=== PATIENT | male | born 1955 | race Caucasian/White ===

== ENCOUNTER 2018-04-03 21:09 | Emergency (ER) | payer BC ==
[2018-04-03] MEDS ORDERED: CLINDAMYCIN 900MG/D5W 900 MG/50 ML BAG IV ONE (23:05)
[2018-04-03] MEDS ORDERED: ACETAMINOPHEN 500 MG TAB ONE (23:05)
[2018-04-03] MEDS ORDERED: ONDANSETRON 4 MG/2 ML VIAL ONE (23:21)
[2018-04-03 23:28] LABS: Absolute Lymphocytes (CBC) 1.5 K/uL (0.7-4.9); Absolute Monocytes 1.1 K/uL (0.1-1.3); Absolute Neutrophil 10.7 K/uL (1.8-8.0); Basophils % 0.4 % (0-1.3); Eosinophils % 3.4 % (0-4.4); Hematocrit 41.2 % (39.6-49.0); Lymphocytes % 10.6 % (15.3-44.8); MCH 27.8 pg (27.0-35.0); MCV 85.6 fL (80-100); MPV 11.3 fL (7.6-11.3); Monocytes % 8.1 % (3.3-12.3); RBC Red Blood Cell Count 4.81 M/uL (4.33-5.43)
--- NOTE | 2018-04-03 23:37 | ER ---
Nurse's Notes [facility] Name: Chacho Flower Age: 63 yrs Sex: Male : 1955 Arrival Date: 04/03/2018 Time: 21:09 Bed 23 Private MD: Diagnosis: Acute Infected Lower Extremity Burn Wounds Presentation: 04/03 21:26 Presenting complaint: Patient states: "I got a burn on my leg (right) that is not lk1 healing up. It has been swelling and making me run a fever today.". Transition of care: patient was not received from another setting of care. Onset of symptoms was March 23, 2018. Risk Assessment: Do you want to hurt yourself or someone else? Patient reports no desire to harm self or others. Initial Sepsis Screen: Does the patient meet any 2 criteria? No. Patient's initial sepsis screen is negative. Does the patient have a suspected source of infection? Yes: Skin breakdown/wound. Care prior to arrival: None. 21:26 Method Of Arrival: Ambulatory lk1 21:26 Acuity: VIVIAN 3 lk1 Historical: - Allergies: 21:29 No Known Allergies; lk1 - PMHx: 21:29 colitis; ruptured colon; lk1 - PSHx: 21:29 j- pouch; bowel resection; lk1 - Immunization history:: Adult Immunizations up to date. - Social history:: Smoking status: Patient/guardian denies using tobacco. - Ebola Screening: : No symptoms or risks identified at this time. - Family history:: not pertinent. - Hospitalizations: : No recent hospitalization is reported. Screenin:26 Abuse screen: Denies threats or abuse. Nutritional screening: No deficits noted. tl3 Tuberculosis screening: No symptoms or risk factors identified. Fall Risk None identified. Assessment: 22:26 General: Appears in no apparent distress. comfortable, well groomed, well developed, tl3 well nourished, Behavior is calm, cooperative, appropriate for age. Pain: Complains of pain in right Achilles. Neuro: Level of Consciousness is awake, alert, obeys commands, Oriented to person, place, time, situation, Appropriate for age. Cardiovascular: Patient's skin is warm and dry. Respiratory: Airway is patent Respiratory effort is even, unlabored, Respiratory pattern is regular, symmetrical. GI: No signs and/or symptoms were reported involving the gastrointestinal system. : No signs and/or symptoms were reported regarding the genitourinary system. EENT: No signs and/or symptoms were reported regarding the EENT system. Derm: Reports itching, pain peeling, since Saturday. pt was cooking fish and grease splattered onto right leg, areas are crusty yellow with yellowish discharge. Went to [facility] and was given Bactroban cream and antihistamine. 23:56 Reassessment: Patient appears in no apparent distress at this time. No changes from tl3 previously documented assessment. Patient and/or family updated on plan of care and expected duration. Pain level reassessed. Patient is alert, oriented x 3, equal unlabored respirations, skin warm/dry/pink. Vital Signs: 21:29 BP 129 / 108; Pulse 82; Resp 20; Temp 99.6(TE); Pulse Ox 99% on R/A; Weight 81.65 kg lk1 (R); Height 5 ft. 9 in. (175.26 cm) (R); Pain 4/10; 23:56 BP 106 / 93; Pulse 76; Resp 18; Pulse Ox 98% on R/A; tl3 21:29 Body Mass Index 26.58 (81.65 kg, 175.26 cm) lk1 ED Course: 21:09 Patient arrived in ED. ds1 21:28 Triage completed. lk1 21:31 Arm band placed on left wrist. lk1 21:47 Tamir Turpin MD is Attending Physician. wa 22:07 Andreina Stallworth, ARCENIO is Primary Nurse. tl3 22:26 Patient has correct armband on for positive identification. Bed in low position. Call tl3 light in reach. Side rails up X 1. Adult w/ patient. 22:26 No provider procedures requiring assistance completed. Patient did not have IV access tl3 during this emergency room visit. 23:00 Inserted saline lock: 20 gauge in right antecubital area, using aseptic technique. tl3 Blood collected. IV discontinued, intact, bleeding controlled, No redness/swelling at site. Pressure dressing applied. 23:35 Paula Mckeon MD is Referral Physician. wa Administered Medications: 23:15 Drug: Tylenol 1000 mg Route: PO; tl3 23:57 Follow up: Response: Pain is decreased tl3 23:23 Drug: Clindamycin 900 mg Route: IVPB; Infused Over: 30 mins; Site: left antecubital; tl3 Delivery: Primary tubing; 23:57 Follow up: IV Status: Completed infusion; IV Intake: 50ml tl3 23:23 Drug: Zofran 4 mg Route: IVP; Site: right antecubital; tl3 23:57 Follow up: Response: No adverse reaction tl3 Intake: 23:57 IV: 50ml; Total: 50ml. tl3 Outcome: 23:00 Discharged to home ambulatory. tl3 23:00 Condition: good 23:00 Discharge instructions given to patient, family, Instructed on discharge instructions, follow up and referral plans. medication usage, Demonstrated understanding of instructions, follow-up care, medications, Prescriptions given X 2. 23:36 Discharge ordered by . ivana 23:59 Patient left the ED. tl3 Signatures: Rebecca Gaviria Leah RN RN lk1 Tamir Turpin MD MD wa Lowrey, Tammy, RN RN tl3
--- NOTE | 2018-04-03 23:37 | EDPHYS ---
Physician Documentation [facility] Name: Chacho Flower Age: 63 yrs Sex: Male : 1955 Arrival Date: 04/03/2018 Time: 21:09 Bed 23 Private MD: ED Physician Tamir Turpin HPI: 04/04 20:12 This 63 yrs old Male presents to ER via Ambulatory with complaints of Leg wa Pain, Fever. 20:12 The patient presents with an abscess, small, a burn, states got splash burn on both wa legs a week ago while grilling. now noted infection w/ drainage of a some of the lesions. . The complaints affect the both legs. Context: The problem was sustained at home, resulted from burn injury, the patient can fully bear weight, the patient is able to ambulate, without difficulty, Problem is a result from a previous injury: No. Onset: The symptoms/episode began/occurred 1 week(s) ago. Modifying factors: The symptoms are alleviated by nothing. the symptoms are aggravated by nothing. Associated signs and symptoms: Pertinent positives: pain. drainage. Treatment prior to arrival includes: topical mupurocin. Severity of symptoms: At their worst the symptoms were moderate, in the emergency department the symptoms are unchanged. The patient has not experienced similar symptoms in the past. The patient has not recently seen a physician. Historical: - Allergies: 04/03 21: No Known Allergies; lk1 - PMHx: 21:29 colitis; ruptured colon; lk1 - PSHx: 21:29 j- pouch; bowel resection; lk1 - Immunization history:: Adult Immunizations up to date. - Social history:: Smoking status: Patient/guardian denies using tobacco. - Ebola Screening: : No symptoms or risks identified at this time. - Family history:: not pertinent. - Hospitalizations: : No recent hospitalization is reported. ROS: 04/04 20:14 Constitutional: Negative for fever, chills, and weight loss, Eyes: Negative for injury, wa pain, redness, and discharge, ENT: Negative for injury, pain, and discharge, Neck: Negative for injury, pain, and swelling, Cardiovascular: Negative for chest pain, palpitations, and edema, Respiratory: Negative for shortness of breath, cough, wheezing, and pleuritic chest pain, Abdomen/GI: Negative for abdominal pain, nausea, vomiting, diarrhea, and constipation, Back: Negative for injury and pain, : Negative for injury, bleeding, discharge, and swelling, Neuro: Negative for headache, weakness, numbness, tingling, and seizure, Psych: Negative for depression, anxiety, suicide ideation, homicidal ideation, and hallucinations. MS/extremity: Positive for wounds on legs. Skin: Positive for draining wounds on legs. All other systems are negative. Exam: 20:15 Constitutional: This is a well developed, well nourished patient who is awake, alert, wa and in no acute distress. Head/Face: Normocephalic, atraumatic. Eyes: Pupils equal round and reactive to light, extra-ocular motions intact. Lids and lashes normal. Conjunctiva and sclera are non-icteric and not injected. Cornea within normal limits. Periorbital areas with no swelling, redness, or edema. ENT: Nares patent. No nasal discharge, no septal abnormalities noted. Tympanic membranes are normal and external auditory canals are clear. Oropharynx with no redness, swelling, or masses, exudates, or evidence of obstruction, uvula midline. Mucous membranes moist. Neck: Trachea midline, no thyromegaly or masses palpated, and no cervical lymphadenopathy. Supple, full range of motion without nuchal rigidity, or vertebral point tenderness. No Meningismus. Chest/axilla: Normal chest wall appearance and motion. Nontender with no deformity. No lesions are appreciated. Cardiovascular: Regular rate and rhythm with a normal S1 and S2. No gallops, murmurs, or rubs. Normal PMI, no JVD. No pulse deficits. Respiratory: Lungs have equal breath sounds bilaterally, clear to auscultation and percussion. No rales, rhonchi or wheezes noted. No increased work of breathing, no retractions or nasal flaring. Abdomen/GI: Soft, non-tender, with normal bowel sounds. No distension or tympany. No guarding or rebound. No evidence of tenderness throughout. Back: No spinal tenderness. No costovertebral tenderness. Full range of motion. Neuro: Awake and alert, GCS 15, oriented to person, place, time, and situation. Cranial nerves II-XII grossly intact. Motor strength 5/5 in all extremities. Sensory grossly intact. Cerebellar exam normal. Normal gait. Psych: Awake, alert, with orientation to person, place and time. Behavior, mood, and affect are within normal limits. 20:15 Musculoskeletal/extremity: noted several dry scaling areas of wounds in different stages of healing. 2 of them noted with associated redness at base, mild drainage. . 20:15 Skin: abscess, of the R medial aspec of the ankle, cellulitis, that is minimal. Vital Signs: 04/03 21:29 BP 129 / 108; Pulse 82; Resp 20; Temp 99.6(TE); Pulse Ox 99% on R/A; Weight 81.65 kg lk1 (R); Height 5 ft. 9 in. (175.26 cm) (R); Pain 4/10; 23:56 BP 106 / 93; Pulse 76; Resp 18; Pulse Ox 98% on R/A; tl3 21:29 Body Mass Index 26.58 (81.65 kg, 175.26 cm) lk1 Procedures: 04/04 20:17 I \T\ D: Incision and drainage was performed for an abscess of the right medial ankle wa Prepped with Betadine, Incised with edge of 18 gauge. . Drained small amount purulent fluid. Dressing: bacitracin the patient tolerated the procedure well. MDM: 04/03 21:47 Patient medically screened. ak 04/04 20:18 Differential diagnosis: infected wound. will place IV and give abx. will d/c with abx. ak Data reviewed: vital signs, nurses notes. 20:18 Test interpretation: by ED physician or midlevel provider: labs were wnl. ak 04/03 22:49 Order name: Basic Metabolic Panel ak 04/03 22:49 Order name: CBC with Diff ak 04/03 22:49 Order name: Hepatic Function ak 04/03 22:49 Order name: IV Saline Lock; Complete Time: 23:23 ak 04/03 22:49 Order name: Labs collected and sent; Complete Time: 23:23 ak Administered Medications: 04/03 23:15 Drug: Tylenol 1000 mg Route: PO; tl3 23:57 Follow up: Response: Pain is decreased tl3 23:23 Drug: Clindamycin 900 mg Route: IVPB; Infused Over: 30 mins; Site: left antecubital; tl3 Delivery: Primary tubing; 23:57 Follow up: IV Status: Completed infusion; IV Intake: 50ml tl3 23:23 Drug: Zofran 4 mg Route: IVP; Site: right antecubital; tl3 23:57 Follow up: Response: No adverse reaction tl3 Disposition: 04/03/18 23:36 Discharged to Home. Impression: Acute Infected Lower Extremity Burn Wounds. - Condition is Stable. - Discharge Instructions: Cellulitis, [id number], Wound Care, [id number]. - Prescriptions for Keflex 500 mg Oral Capsule - take 1 capsule by ORAL route every 8 hours for 7 days; 21 capsule. Bactrim DS 800- 160 mg Oral Tablet - take 1 tablet by ORAL route every 12 hours for 7 days; 14 tablet. - Work release form, Medication Reconciliation Form, Thank You Letter, Antibiotic Education, Prescription Opioid Use form. - Follow up: Paula Mckeon MD; When: 2 - 3 days; Reason: Re-evaluation by your physician. - Problem is new. - Symptoms have improved. - Notes: take antibiotics as prescribed. follow up with Dr. Mckeon for primary care and further wound evaluation. return here for severely worsening concerns immediately Signatures: Dispatcher [employer] EDLindsey Douglass RN RN lk1 Tamir Turpin MD MD wa Lowrey, Tammy, RN RN tl3 Corrections: (The following items were deleted from the chart) 23:59 23:36 04/03/2018 23:36 Discharged to Home. Impression: Acute Infected Lower Extremity tl3 Burn Wounds. Condition is Stable. Forms are Medication Reconciliation Form, Thank You Letter, Antibiotic Education, Prescription Opioid Use. Follow up: Paula Mckeon; When: 2 - 3 days; Reason: Re-evaluation by your physician. Problem is new. Symptoms have improved. wa
[2018-04-03 23:40] LABS: Albumin 3.5 g/dL (3.4-5.0); Bilirubin Direct 0.3 mg/dL (0-0.2); Bilirubin Total 1.2 mg/dL (0.2-1.0); Potassium 3.7 mmol/L (3.5-5.1); Protein, Total 7.2 g/dL (6.4-8.2)
== END 2018-04-03 23:59 | disposition home or self-care (01) ==
LOC: ER 21:09
PROC: 0J9Q0ZZ Drainage of Right Foot Subcutaneous Tissue and Fascia, Open Approach (ICD-10-PCS; principal; 2018-04-03)
DX: T25.091A Burn of unspecified degree of multiple sites of right ankle and foot, initial encounter (principal); L02.415 Cutaneous abscess of right lower limb; L03.115 Cellulitis of right lower limb; T24.092A Burn of unspecified degree of multiple sites of left lower limb, except ankle and foot, initial encounter; T24.091A Burn of unspecified degree of multiple sites of right lower limb, except ankle and foot, initial encounter; X12.XXXA Contact with other hot fluids, initial encounter; Y93.G2 Activity, grilling and smoking food; Y92.019 Unspecified place in single-family (private) house as the place of occurrence of the external cause
CPT/HCPCS: 36415; 80048; 80076; 85025; 96365; 96375; 99284; J2405

== ENCOUNTER 2020-04-24 15:49 | Emergency (ER) | payer BC ==
[2020-04-24] MEDS ORDERED: TETANUS & DIPHTHERIA TOX,ADULT 0.5 ML VIAL ONE (16:35)
[2020-04-24] MEDS ORDERED: ACETAMINOPHEN 325 MG TABLET ONE (16:35)
[2020-04-24] MEDS ORDERED: IBUPROFEN 400 MG TAB ONE (16:35)
--- NOTE | 2020-04-24 17:05 | ER ---
Nurse's Notes [facility] Name: Chacho Flower Age: 65 yrs Sex: Male : 1955 Arrival Date: 04/24/2020 Time: 15:51 Bed 15 Private MD: Diagnosis: Laceration without foreign body of left lesser toe(s) without damage to nail Presentation: 04/24 16:24 Chief complaint: Patient states: Offshore fishing today, noticed bleeding from foot, ph states, " I never felt anything but I'm thinking maybe my foot went into the fish's mouth," Lacerations noted to tops of 3rd and 4th toes, L foot, bleeding controlled. Coronavirus screen: Patient denies shortness of breath or difficulty breathing. Patient denies measured and/or subjective temperature greater than 100.4F prior to today's visit. Patient denies travel on a cruise ship or to a country the [facility] currently lists as an affected area. Patient denies contact with known and/or suspected case of COVID-19. Proceed with normal triage. Ebola Screen: No symptoms or risks identified at this time. Initial Sepsis Screen: Does the patient meet any 2 criteria? No. Patient's initial sepsis screen is negative. Does the patient have a suspected source of infection? No. Patient's initial sepsis screen is negative. Risk Assessment: Do you want to hurt yourself or someone else? Patient reports no desire to harm self or others. Onset of symptoms was April 24, 2020. 16:24 Method Of Arrival: Ambulatory 16:24 Acuity: VIVIAN 4 ph Historical: - Allergies: 16:29 No Known Allergies; ph - PMHx: 16:29 Colitis; ruptured colon; ph - PSHx: 16:29 j- pouch; Bowel resection; ph - Immunization history:: Last tetanus immunization: < 5 years ago. - Social history:: Smoking status: Patient denies any tobacco usage or history of. Screenin:48 Abuse screen: Denies threats or abuse. Nutritional screening: No deficits noted. ll1 Tuberculosis screening: No symptoms or risk factors identified. Fall Risk None identified. Gait- Impaired (20 pts.). Total Yang Fall Scale indicates No Risk (0-24 pts). Assessment: 16:46 General: Appears in no apparent distress. Behavior is calm, cooperative, appropriate ll1 for age. Pain: Denies pain. Derm: Skin is pink, warm \\T\\ dry. Skin temperature is warm Reports laceration to left foot 2nd and 3rd digits. Musculoskeletal: Circulation, motion, and sensation intact. Capillary refill < 3 seconds. Injury Description: laceration. 17:45 Reassessment: Patient appears in no apparent distress at this time. No changes from ll1 previously documented assessment. Patient and/or family updated on plan of care and expected duration. Pain level reassessed. Patient is alert, oriented x 3, equal unlabored respirations, skin warm/dry/pink. 18:44 Reassessment: Patient appears in no apparent distress at this time. No changes from ll1 previously documented assessment. Patient and/or family updated on plan of care and expected duration. Pain level reassessed. Patient is alert, oriented x 3, equal unlabored respirations, skin warm/dry/pink. Vital Signs: 16:24 BP 147 / 86; Pulse 85; Resp 18; Temp 98.8; Pulse Ox 98% ; Weight 83.91 kg; Height 5 ft. ph 9 in. (175.26 cm); Pain 0/10; 17:00 BP 134 / 75; Pulse 81; Resp 17; Pulse Ox 99% ; ll1 18:00 BP 134 / 76; Pulse 78; Resp 17; Pulse Ox 100% ; ll1 18:42 BP 127 / 74; Pulse 74; Resp 17; Pulse Ox 99% ; ll1 16:24 Body Mass Index 27.32 (83.91 kg, 175.26 cm) ph ED Course: 15:51 Patient arrived in ED. bp1 15:57 Phu Houston PA is PHCP. cp 15:57 Phu Hwang MD is Attending Physician. cp 16:09 Esthela Chapman, ARCENIO is Primary Nurse. ll1 16:29 Triage completed. ph 16:30 Arm band placed on Patient placed in an exam room, on a stretcher, on pulse oximetry. ph 16:48 Patient has correct armband on for positive identification. Bed in low position. Call ll1 light in reach. Side rails up X 1. Pulse ox on. NIBP on. 17:10 XRAY Foot LEFT 3 View In Process Unspecified. EDMS 18:37 Dressings: Adaptic X 1; left third toe and left fourth toe Kerlix X 1; left foot jp3 non-adherent dressing x 1 left foot. Dressings: coban tape. Ortho shoe applied to left foot. Wound care: to laceration located on left third toe and left fourth toe was cleaned with Hibiclens, debrided using Betadine scrub, irrigated with normal saline, Patient tolerated well. Wound care: was dressed with Neosporin. 18:45 No provider procedures requiring assistance completed. Patient did not have IV access ll1 during this emergency room visit. Administered Medications: 16:35 Drug: Ibuprofen 800 mg Route: PO; ll1 18:45 Follow up: Response: No adverse reaction; RASS: Alert and Calm (0) ll1 16:35 Drug: Tylenol 650 mg Route: PO; ll1 18:44 Follow up: Response: No adverse reaction; RASS: Alert and Calm (0) 1 16:40 Drug: Tetanus-Diphtheria Toxoid Adult 0.5 ml {Design Technician: [employer]. Exp: 1 06/25/2021. Lot #: [id number]. } Route: IM; Site: right deltoid; 18:45 Follow up: Response: No adverse reaction; RASS: Alert and Calm (0) 1 Outcome: 17:05 Discharge ordered by . bruno 18:45 Patient left the ED. 1 18:45 Discharged to home ambulatory. 1 18:45 Condition: stable 18:45 Discharge instructions given to patient, Instructed on discharge instructions, follow up and referral plans. medication usage, Demonstrated understanding of instructions, follow-up care, medications, Prescriptions given X 1. Signatures: Dispatcher [employer] EDAgnes Medley RN RN Phu Santoro PA PA cp Pisarski, Jacob jp3 Esthela Chapman RN RN 1 [place] bp1
--- NOTE | 2020-04-24 17:05 | EDPHYS ---
Physician Documentation [facility] Name: Chacho Flower Age: 65 yrs Sex: Male : 1955 Arrival Date: 04/24/2020 Time: 15:51 Bed 15 Private MD: ED Physician Phu Hwang HPI: 04/24 16:20 This 65 yrs old Male presents to ER via Ambulatory with complaints of Foot cp Injury. 16:20 The patient presents with an injury, a laceration, irregular. The complaints affect the cp dorsum of left foot. Context: The problem was sustained outdoors, while on fishing boat, the patient can fully bear weight. Onset: The symptoms/episode began/occurred just prior to arrival. Patient concerned while fishing today that after landing fish in boat that foot got caught in fish's mouth causing laceration to toes. Historical: - Allergies: 16:29 No Known Allergies; ph - PMHx: 16:29 Colitis; ruptured colon; ph - PSHx: 16:29 j- pouch; Bowel resection; ph - Immunization history:: Last tetanus immunization: < 5 years ago. - Social history:: Smoking status: Patient denies any tobacco usage or history of. ROS: 16:25 Skin: Positive for laceration(s), of the dorsum of left foot. cp 16:25 MS/extremity: Positive for swelling, tenderness, of the left foot, Negative for cp decreased range of motion, deformity, paresthesias. 16:25 All other systems are negative. Exam: 16:30 Head/Face: Normocephalic, atraumatic. cp 16:30 Constitutional: The patient appears in no acute distress, alert, awake, well developed, well nourished. 16:30 Musculoskeletal/extremity: Extremities: noted in the dorsum of left foot: ecchymosis, swelling, tenderness, Perfusion: the extremity is normally perfused throughout, Sensation intact. 16:30 Skin: injury, laceration(s), of the dorsal aspect left third and fourth toes, that can be described as no foreign body, irregular, with mild bleeding. Vital Signs: 16:24 BP 147 / 86; Pulse 85; Resp 18; Temp 98.8; Pulse Ox 98% ; Weight 83.91 kg; Height 5 ft. ph 9 in. (175.26 cm); Pain 0/10; 17:00 BP 134 / 75; Pulse 81; Resp 17; Pulse Ox 99% ; ll1 18:00 BP 134 / 76; Pulse 78; Resp 17; Pulse Ox 100% ; ll1 18:42 BP 127 / 74; Pulse 74; Resp 17; Pulse Ox 99% ; ll1 16:24 Body Mass Index 27.32 (83.91 kg, 175.26 cm) ph MDM: 16:14 Patient medically screened. cp 16:30 Differential diagnosis: open fracture, closed fracture, abrasion, laceration. cp 17:04 Data reviewed: vital signs, nurses notes, radiologic studies, plain films. cp 17:04 Test interpretation: by ED physician or midlevel provider: xrays of left foot negative cp for fracture. Counseling: I had a detailed discussion with the patient and/or guardian regarding: the historical points, exam findings, and any diagnostic results supporting the discharge/admit diagnosis, radiology results, to return to the emergency department if symptoms worsen or persist or if there are any questions or concerns that arise at home. 04/24 16:20 Order name: XRAY Foot LEFT 3 View; Complete Time: 17:22 cp 04/24 17:22 Interpretation: Reviewed report. 04/24 17:04 Order name: Wound dressing: please clean and dress wound; Complete Time: 18:37 cp 04/24 17:04 Order name: Post-op shoe; Complete Time: 18:37 cp Administered Medications: 16:35 Drug: Ibuprofen 800 mg Route: PO; ll1 18:45 Follow up: Response: No adverse reaction; RASS: Alert and Calm (0) ll1 16:35 Drug: Tylenol 650 mg Route: PO; ll1 18:44 Follow up: Response: No adverse reaction; RASS: Alert and Calm (0) ll1 16:40 Drug: Tetanus-Diphtheria Toxoid Adult 0.5 ml {Cake [employer]ocker: [employer]. Exp: ll1 06/25/2021. Lot #: [id number]. } Route: IM; Site: right deltoid; 18:45 Follow up: Response: No adverse reaction; RASS: Alert and Calm (0) ll1 Disposition: 17:15 Chart complete. 04/25 08:13 Co-signature as Attending Physician, Phu Hwang MD I agree with the assessment and gold plan of care. Disposition: 04/24/20 17:05 Discharged to Home. Impression: Laceration without foreign body of left lesser toe(s) without damage to nail. - Condition is Stable. - Discharge Instructions: Laceration Care, Adult, Nonsutured Laceration Care. - Prescriptions for Doxycycline Hyclate 100 mg Oral Tablet - take 1 tablet by ORAL route every 12 hours; 20 tablet. - Medication Reconciliation Form, Thank You Letter, Antibiotic Education, Prescription Opioid Use form. - Follow up: Private Physician; When: 2 - 3 days; Reason: Worsening of condition. - Problem is new. - Symptoms have improved. Signatures: Dispatcher [employer] EDMS Phu Hwang MD MD cha Hall, Patricia, RN RN ph Phu Houston PA PA cp Esthela Chapman RN RN ll1 Corrections: (The following items were deleted from the chart) 04/24 17:03 16:40 Constitutional: The patient appears in no acute distress, alert, awake, well cp developed, well nourished, cp 17:03 16:40 Head/Face: Normocephalic, atraumatic. cp cp 17:03 16:40 Skin: injury, laceration(s), of the dorsal aspect left third and fourth toes, cp that can be described as no foreign body, irregular, with mild bleeding, cp 17:03 16:40 Musculoskeletal/extremity: Extremities: noted in the dorsum of left foot: cp ecchymosis, swelling, tenderness, Perfusion: the extremity is normally perfused throughout, Sensation intact. cp 18:45 17:05 04/24/2020 17:05 Discharged to Home. Impression: Laceration without foreign body ll1 of left lesser toe(s) without damage to nail. Condition is Stable. Forms are Medication Reconciliation Form, Thank You Letter, Antibiotic Education, Prescription Opioid Use. Follow up: Private Physician; When: 2 - 3 days; Reason: Worsening of condition. Problem is new. Symptoms have improved. cp
--- NOTE | 2020-04-24 17:15 | RAD REPORT ---
EXAM DESCRIPTION: RAD - Foot Left 3 View - 04/24/2020 5:09 pm CLINICAL HISTORY: laceration;Pain COMPARISON: No comparisons FINDINGS: No fracture, dislocation or radiopaque foreign body. Small plantar calcaneal spur.
[2020-04-24 19:09] VITALS: TEMP 98.8
[2020-04-24 19:13] VITALS: BP 127/74; O2SAT 99
== END 2020-04-24 18:45 | disposition home or self-care (01) ==
LOC: ER 15:49
DX: S91.115A Laceration without foreign body of left lesser toe(s) without damage to nail, initial encounter (principal); W45.8XXA Other foreign body or object entering through skin, initial encounter; Y93.89 Activity, other specified; Y92.814 Boat as the place of occurrence of the external cause; Z23 Encounter for immunization
CPT/HCPCS: 90471; 90714; 99284

== ENCOUNTER 2022-11-16 09:36 | Emergency (ER) | payer OTHER ==
--- OUTSIDE RECORDS SUMMARY | 2022-11-16 09:39 | XMS REPORT | Continuity of Care Document ---
:1955 Author Organization [facility] t Address [address] [place] [address] Care Team Providers Name Role Phone Unavailable Unavailable Unavailable Problems This patient has no known problems. Allergies, Adverse Reactions, Alerts This patient has no known allergies or adverse reactions. Medications This patient has no known medications. Procedures This patient has no known procedures. Encounters Start End Encounter Admission Attending Care Care Encounter Source Date/Time Date/Time Type Type Clinicians Facility Department ID 2021-10-31 2021-10-31 Outpatient [facility] 00:00:00 00:00:00 [id number] 2021-10-16 2021-10-16 Outpatient [facility] 00:00:00 00:00:00 [id number] Results This patient has no known results.
[2022-11-16] MEDS ORDERED: ONDANSETRON 4 MG/2 ML VIAL ONE ×2 (10:20→21:23)
[2022-11-16] MEDS ORDERED: NA CHLORIDE 0.9% 1,000 ML ONE ×2 (10:20→17:18)
[2022-11-16] MEDS ORDERED: KETOROLAC 30 MG/ML INJ ONE (10:20)
[2022-11-16 10:57] LABS: Absolute Lymphocytes (CBC) 0.7 K/uL (0.7-4.9); Hematocrit 43.5 % (39.6-49.0); Lymphocytes % 10.2 % (15.3-44.8); MCV 85.9 fL (80-100); MPV 10.4 fL (7.6-11.3); RBC Red Blood Cell Count 5.07 M/uL (4.33-5.43)
[2022-11-16 11:14] LABS: Albumin 3.9 g/dL (3.4-5.0); Bilirubin Total 2.9 mg/dL (0.2-1.0); Protein, Total 7.3 g/dL (6.4-8.2)
--- NOTE | 2022-11-16 12:09 | RAD REPORT ---
EXAM DESCRIPTION: CT - Abdomen Pelvis W Contrast - 11/16/2022 11:46 am CLINICAL HISTORY: Abdominal pain COMPARISON: none. TECHNIQUE: Computed axial tomography of the abdomen pelvis was obtained. 100 cc Isovue-300 was admin istered intravenously. Oral contrast was not requested which limits evaluation of bowel and appendix All CT scans are performed using dose optimization technique as appropriate and may include automated exposure control or mA/KV adjustment according to patient size. FINDINGS: Small hepatic cysts Spleen, pancreas, adrenals and kidneys are unremarkable Colectomy. It is uncertain if there is a piece of residual rectum in place or it is ileum. Most of th e small bowel is mildly dilated and fluid-filled. No free air. No abscess IMPRESSION: Colectomy. The small bowel is mildly dilated to the level of either small piece of residual rectum or transposed ileum. Perhaps there is a stricture at the anastomotic site.
[2022-11-16] MEDS ORDERED: MORPHINE 2 MG/ML SYR ONE (13:36)
[2022-11-16] MEDS ORDERED: METOCLOPRAMIDE 10 MG/2mL INJ ONE (13:36)
[2022-11-16 15:44] LABS: SARS-CoV-2 Antigen Rapid Res Negative (Negative)
[2022-11-16] MEDS ORDERED: MORPHINE 4 MG/ML SYR ONE ×2 (17:18→21:23)
--- NOTE | 2022-11-16 19:12 | RAD REPORT ---
EXAM DESCRIPTION: RAD - Abdomen 1 View (KUB) - 11/16/2022 7:05 pm CLINICAL HISTORY: ng tube placement COMPARISON: Abdomen Pelvis W Contrast dated 11/16/2022 FINDINGS/IMPRESSION: NG tube tip overlies the gastric body. Dilated small bowel noted. Lungs are bernie ar.
--- NOTE | 2022-11-16 19:29 | EDPHYS ---
Physician Documentation [facility] Name: Chacho Flower Age: 67 yrs Sex: Male : 1955 Arrival Date: 11/16/2022 Time: 09:39 Bed 14 Private MD: Tamir Hutchinson H ED Physician Cortez Maher HPI: 11/16 10:11 This 67 yrs old Male presents to ER via Ambulatory with complaints of Abdominal Pain. aj3 10:11 Patient reports abdominal pain started last night associated with nausea and mild aj3 vomiting. He reports the pain is generalized and nonradiating. His last bowel movement was yesterday and normal. Patient reports having history of ulcerative colitis when he was younger with a J-pouch and previous bowel obstructions in the past. No reports of any fever, chills, urinary symptoms, bloody or black stools.. Historical: - Allergies: 09:50 No Known Allergies; iw - Home Meds: 09:50 None [Active]; iw - PMHx: 09:50 Colitis; ruptured colon; iw - PSHx: 09:50 colostomy and reversal; iw - Immunization history:: Client reports receiving the 2nd dose of the Covid vaccine. - Social history:: Smoking status: Patient denies any tobacco usage or history of. ROS: 10:11 Constitutional: Negative for fever, chills, and weight loss, Neck: Negative for injury, aj3 pain, and swelling, Cardiovascular: Negative for chest pain, palpitations, and edema, Respiratory: Negative for shortness of breath, cough, wheezing, and pleuritic chest pain, MS/Extremity: Negative for injury and deformity, Skin: Negative for injury, rash, and discoloration, Neuro: Negative for syncope, headache, weakness, numbness, tingling, and seizure. 10:11 Abdomen/GI: Positive for abdominal pain, nausea and vomiting, Negative for diarrhea, constipation, hematemesis, black/tarry stool, rectal pain, rectal bleeding. Exam: 10:11 Constitutional: This is a well developed, well nourished patient who is awake, alert, aj3 and in no acute distress. Neck: Trachea midline and no cervical lymphadenopathy. Supple, full range of motion without nuchal rigidity. Cardiovascular: Regular rate and rhythm with a normal S1 and S2. No gallops, murmurs, or rubs. Normal PMI, no JVD. No pulse deficits. Respiratory: Lungs have equal breath sounds bilaterally, clear to auscultation and percussion. No rales, rhonchi or wheezes noted. No increased work of breathing, no retractions or nasal flaring. Skin: Warm, dry with normal turgor. Normal color with no rashes, no lesions, and no evidence of cellulitis. MS/ Extremity: Pulses equal, no cyanosis. Neurovascular intact. Full, normal range of motion. Neuro: Awake and alert, GCS 15, oriented to person, place, time, and situation. Cranial nerves II-XII grossly intact. Motor strength 5/5 in all extremities. Sensory grossly intact. Cerebellar exam normal. Normal gait. 10:11 Abdomen/GI: Inspection: abdomen appears normal, Bowel sounds: normal, Palpation: soft, moderate abdominal tenderness, in all quadrants. Vital Signs: 09:48 BP 135 / 72; Pulse 72; Resp 16; Temp 98.6(O); Pulse Ox 96% ; Weight 83.91 kg; Height 5 iw ft. 9 in. (175.26 cm); Pain 10/10; 11:00 BP 130 / 73; Pulse 68; Resp 18; Pulse Ox 95% on R/A; kr3 12:06 BP 134 / 80; Pulse 78; Resp 18; Pulse Ox 98% on R/A; kr3 13:00 BP 130 / 81; Pulse 72; Resp 18; Pulse Ox 100% on R/A; kr3 14:00 BP 135 / 70; Pulse 66; Resp 18; Pulse Ox 100% ; kr3 15:00 BP 136 / 95; Pulse 78; Resp 18; Pulse Ox 96% on R/A; kr3 16:00 BP 129 / 76; Pulse 70; Resp 18; Pulse Ox 95% on R/A; kr3 17:00 BP 127 / 75; Pulse 68; Resp 18; Pulse Ox 94% on R/A; kr3 18:00 BP 130 / 80; Pulse 68; Resp 18; Pulse Ox 96% on R/A; kr3 21:15 BP 126 / 80; Pulse 67; Resp 18; Temp 98.6; Pulse Ox 95% on R/A; Pain 8/10; ke1 09:48 Body Mass Index 27.32 (83.91 kg, 175.26 cm) iw MDM: 10:04 Patient medically screened. aj3 10:11 Differential diagnosis: appendicitis, bowel obstruction, Cholelithiasis, diverticulitis.aj3 13:42 Management of patient was discussed with the following: Safety Risk Lead: Spoke with Dr. ar Munoz regarding patient CT results. Stated that he will come and evaluate patient after he is finished in the OR. Patient updated on plan.. Independent interpretation of the following test(s) in the Emergency Department CT Scan: My interpretation is dilated bowel noted. . 13:49 Data reviewed: vital signs, nurses notes, lab test result(s), radiologic studies, CT aj3 scan. 14:56 Independent interpretation of the following test(s) in the Emergency Department. aj3 14:58 Data reviewed: lab test result(s), T bili elevated. . aj3 15:47 Consideration of Admission/Observation Escalation of care including aj3 admission/observation considered. Will need transfer to facility with colorectal surgery. Management of patient was discussed with the following: Safety Risk Lead: Dr. Munoz came to evaluate patient. After discussion with patient reviewing his CT imaging there is concern that he needs to be transferred to a facility that has colorectal surgery secondary to ileoanal J-pouch with stenosis which is causing his obstruction. Transfer has been initiated to [facility] as they requested Dr. Allen but they are at capacity.. Historians other than the Patient: Spouse/Significant Other: . 15:47 Care significantly affected by the following chronic conditions: Ulcerative colitis. aj3 Counseling: I had a detailed discussion with the patient and/or guardian regarding: the historical points, exam findings, and any diagnostic results supporting the discharge/admit diagnosis, lab results, radiology results, the need to transfer to another facility. 19:15 ED course: I discussed the patient with Colorectal whom wants to accept patient. sulema Waiting on [facility] approval. 11/16 10:11 Order name: CBC with Diff; Complete Time: 11:11 aj3 11/16 10:11 Order name: CMP; Complete Time: 11:57 aj3 11/16 10:11 Order name: Lipase; Complete Time: 11:57 aj3 11/16 10:11 Order name: CT Abd/Pelvis - IV Contrast Only; Complete Time: 12:41 aj3 11/16 15:17 Order name: SARS RAPID; Complete Time: 15:46 eb 11/16 18:30 Order name: Abdomen 1 View (KUB) XRAY; Complete Time: 19:14 m 11/16 10:11 Order name: IV Saline Lock; Complete Time: 10:59 [facility] 11/16 10:11 Order name: Labs collected and sent; Complete Time: 10:59 [facility] 11/16 12:57 Order name: Consult Surgery-Jesús Munoz MD (GENERAL SURGERY); Complete Time: 13:31 [facility] 11/16 13:49 Order name: NPO; Complete Time: 13:51 [facility] 11/16 16:57 Order name: NG Tube; Complete Time: 18:25 jmm Administered Medications: 10:35 Drug: NS 0.9% 1000 ml Route: IV; Rate: 1 bolus; Site: right forearm; kr3 10:40 Drug: TORadol - (ketorolac) 15 mg Route: IVP; Site: right forearm; kr3 10:45 Drug: Zofran (Ondansetron) 4 mg Route: IVP; Site: right forearm; kr3 13:41 Drug: Reglan (metoCLOPramide) 10 mg Route: IVP; Site: right forearm; kr3 13:42 Drug: morphine 2 mg Route: IVP; Infused Over: 4 mins; Site: right forearm; kr3 17:15 Drug: morphine 4 mg Route: IVP; Infused Over: 4 mins; Site: right forearm; kr3 18:25 Drug: NS 0.9% 1000 ml Route: IV; Rate: 100 ml/hr; Site: right forearm; kr3 21:23 Drug: morphine 4 mg Route: IVP; Infused Over: 4 mins; Site: right forearm; ke1 21:29 Follow up: Response: Medication administered at discharge. ke1 21:23 Drug: Zofran (Ondansetron) 4 mg Route: IVP; Site: right forearm; ke1 21:29 Follow up: Response: Medication administered at discharge. 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 jmm Forms: - Medication Reconciliation Form [facility] - SBAR form [facility] Signatures: Dispatcher [employer] EDMS Sai Crawford PA PA jmm Williams, Irene, Matthew Martinez RN, MD MD rn Ebrottie, Kouassi, RN RN ke1 Denise Davis RN RN kr3 Abena Wallace, IT SECURITY ARCHITECT IT SECURITY ARCHITECT aj3 Corrections: (The following items were deleted from the chart) 14:57 13:42 Independent interpretation of the following test(s) in the Emergency Department aj3 CT Scan: My interpretation is No obvious signs of perforation or obstruction on my review. aj3 21:29 19:28 Alejandro leone ke1
--- NOTE | 2022-11-16 19:29 | ER ---
Nurse's Notes 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 He had UC several years ago and had a colostomy. Coronavirus screen: At this time, the client does not indicate any symptoms associated with coronavirus-19. Ebola Screen: Patient negative for fever greater than or equal to 101.5 degrees Fahrenheit, and additional compatible Ebola Virus Disease symptoms Patient denies exposure to infectious person. Patient denies travel to an Ebola-affected area in the 21 days before illness onset. No symptoms or risks identified at this time. Initial Sepsis Screen: Does the patient meet any 2 criteria? No. Patient's initial sepsis screen is negative. Does the patient have a suspected source of infection? No. Patient's initial sepsis screen is negative. Risk Assessment: Do you want to hurt yourself or someone else? Patient reports no desire to harm self or others. Onset of symptoms was November 15, 2022. 09:48 Method Of Arrival: Ambulatory iw 09:48 Acuity: VIVIAN 3 iw Triage Assessment: 19:00 General: Appears in no apparent distress. General: Behavior is appropriate for age. ke1 Pain: Denies pain. GI: Reports. Historical: - Allergies: 09:50 No Known Allergies; iw - Home Meds: 09:50 None [Active]; iw - PMHx: 09:50 Colitis; ruptured colon; iw - PSHx: 09:50 colostomy and reversal; iw - Immunization history:: Client reports receiving the 2nd dose of the Covid vaccine. - Social history:: Smoking status: Patient denies any tobacco usage or history of. Screenin:00 [facility] ED Fall Risk Assessment (Adult) History of falling in the last 3 months, ke1 including since admission No falls in past 3 months (0 pts) Confusion or Disorientation No (0 pts) Intoxicated or Sedated No (0 pts) Impaired Gait No (0 pts) Mobility Assist Device Used No (0 pt) Altered Elimination No (0 pt) Score/Fall Risk Level 0 - 2 = Low Risk. Abuse screen: Denies threats or abuse. Nutritional screening: No deficits noted. Tuberculosis screening: No symptoms or risk factors identified. Assessment: 10:00 Reassessment: see triage note. kr3 11:00 Reassessment: Patient appears in no apparent distress at this time. Patient and/or kr3 family updated on plan of care and expected duration. Pain level reassessed. Patient is alert, oriented x 3, equal unlabored respirations, skin warm/dry/pink. patient states symptoms improved. 12:05 Reassessment: Patient appears in no apparent distress at this time. Patient and/or kr3 family updated on plan of care and expected duration. Pain level reassessed. Patient is alert, oriented x 3, equal unlabored respirations, skin warm/dry/pink. 13:00 Reassessment: Patient appears in no apparent distress at this time. Patient and/or kr3 family updated on plan of care and expected duration. Pain level reassessed. Patient is alert, oriented x 3, equal unlabored respirations, skin warm/dry/pink. 13:15 Reassessment: called to let me know the pain and nausea is coming back and would like kr3 some more medication. 14:00 Reassessment: Patient and/or family updated on plan of care and expected duration. Pain kr3 level reassessed. Patient is alert, oriented x 3, equal unlabored respirations, skin warm/dry/pink. 14:45 Reassessment: Ivette at bedside. kr3 15:00 Reassessment: Patient appears in no apparent distress at this time. Patient and/or kr3 family updated on plan of care and expected duration. Pain level reassessed. Patient is alert, oriented x 3, equal unlabored respirations, skin warm/dry/pink. 16:00 Reassessment: Patient appears in no apparent distress at this time. Patient and/or kr3 family updated on plan of care and expected duration. Pain level reassessed. Patient is alert, oriented x 3, equal unlabored respirations, skin warm/dry/pink. 17:00 Reassessment: Patient appears in no apparent distress at this time. Patient and/or kr3 family updated on plan of care and expected duration. Pain level reassessed. Patient is alert, oriented x 3, equal unlabored respirations, skin warm/dry/pink. 18:00 Reassessment: Patient appears in no apparent distress at this time. Patient and/or kr3 family updated on plan of care and expected duration. Pain level reassessed. Patient is alert, oriented x 3, equal unlabored respirations, skin warm/dry/pink. 19:00 GI: ke1 22:31 Reassessment: Report given to Moon Wall. ke1 Vital Signs: 09:48 BP 135 / 72; Pulse 72; Resp 16; Temp 98.6(O); Pulse Ox 96% ; Weight 83.91 kg; Height 5 iw ft. 9 in. (175.26 cm); Pain 10/10; 11:00 BP 130 / 73; Pulse 68; Resp 18; Pulse Ox 95% on R/A; kr3 12:06 BP 134 / 80; Pulse 78; Resp 18; Pulse Ox 98% on R/A; kr3 13:00 BP 130 / 81; Pulse 72; Resp 18; Pulse Ox 100% on R/A; kr3 14:00 BP 135 / 70; Pulse 66; Resp 18; Pulse Ox 100% ; kr3 15:00 BP 136 / 95; Pulse 78; Resp 18; Pulse Ox 96% on R/A; kr3 16:00 BP 129 / 76; Pulse 70; Resp 18; Pulse Ox 95% on R/A; kr3 17:00 BP 127 / 75; Pulse 68; Resp 18; Pulse Ox 94% on R/A; kr3 18:00 BP 130 / 80; Pulse 68; Resp 18; Pulse Ox 96% on R/A; kr3 21:15 BP 126 / 80; Pulse 67; Resp 18; Temp 98.6; Pulse Ox 95% on R/A; Pain 8/10; ke1 09:48 Body Mass Index 27.32 (83.91 kg, 175.26 cm) iw ED Course: 09:35 Inserted saline lock: 22 gauge in right forearm, using aseptic technique. Blood kr3 collected. 09:39 Patient arrived in ED. mr 09:39 Tamir Hutchinson MD is Private Physician. mr 09:48 Abena Wallace NP is PHCP. aj3 09:48 Cortez Maher MD is Attending Physician. aj3 09:50 Triage completed. iw 09:51 Arm band placed on. iw 10:14 Denise Davis, ARCENIO is Primary Nurse. kr3 11:48 CT Abd/Pelvis - IV Contrast Only In Process Unspecified. EDMS 12:[address] Munoz called and connected with Abena Baldwin for patient consultation. eb 15:16 initiated a transfer with Aziza from the [facility] transfer center at the request of the eb patient/. 15:22 per Aziza from the [facility] transfer kemp they will have to decline the patient in eb transfer due to the facility being at capacity. 15:[address] Allen patient's colorectal surgeon. eb 15:46 initiated a transfer with Carey from the [facility] Transfer center. eb 15:58 PHCP role handed off by Abena Wallace NP [facility] 15:58 Sai Crawford PA is PHCP. jm 16:12 Dr. Allen returned call, informed him of the no bed situation at [facility] he ask if we eb can try [facility]/. 16:17 intiated a transfer with Louise from the [facility] Transfer center. eb 16:20 Accepted for transfer to [facility] ER by Courtney Hickey \T\ 1905 per Jurgen Bean. wm 16:54 connected the partner of Dr. Allen with Sai Hutchison for patient transfer consultation. eb 17:35 NGT: inserted 12 Fr. via right nare. verified return of gastric contents. kr3 19:00 Bed in low position. ke1 19:07 Abdomen 1 View (KUB) XRAY In Process Unspecified. EDMS 19:17 Called [facility] to get an update regarding transfer, spoke with Jurgen, she stated that Pt wm has been accepted, just waiting on bed assignment. 21:28 NGT: to intermittent suction. Returned gastric contents. Returned bile. 30 ml. ke1 21:28 No provider procedures requiring assistance completed. Patient transferred, IV remains ke1 in place. 22:29 NGT:. ke1 Administered Medications: 10:35 Drug: NS 0.9% 1000 ml Route: IV; Rate: 1 bolus; Site: right forearm; kr3 10:40 Drug: TORadol - (ketorolac) 15 mg Route: IVP; Site: right forearm; kr3 10:45 Drug: Zofran (Ondansetron) 4 mg Route: IVP; Site: right forearm; kr3 13:41 Drug: Reglan (metoCLOPramide) 10 mg Route: IVP; Site: right forearm; kr3 13:42 Drug: morphine 2 mg Route: IVP; Infused Over: 4 mins; Site: right forearm; kr3 17:15 Drug: morphine 4 mg Route: IVP; Infused Over: 4 mins; Site: right forearm; kr3 18:25 Drug: NS 0.9% 1000 ml Route: IV; Rate: 100 ml/hr; Site: right forearm; kr3 21:23 Drug: morphine 4 mg Route: IVP; Infused Over: 4 mins; Site: right forearm; ke1 21:29 Follow up: Response: Medication administered at discharge. ke1 21:23 Drug: Zofran (Ondansetron) 4 mg Route: IVP; Site: right forearm; ke1 21:29 Follow up: Response: Medication administered at discharge. ke1 Medication: 21:29 VIS not applicable for this client. ke1 Outcome: 19:28 ER care complete, transfer ordered by MD. [facility] 21:28 Transferred by ground EMS ke1 21:28 Condition: stable 21:28 Instructed on the need for transfer. 21:29 Patient left the ED. ke1 Signatures: Dispatcher [employer] EDMS Sai Crawford PA PA jmm KumarLina acosta Irene, RN RN iw Botello, Elizabeth eb Marsh, Wendy wm Ebrottie, Kouassi, RN RN ke1 Denise Davis RN RN kr3 Abena Wallace, [employer] IND[employer] RENDERER aj3 Corrections: (The following items were deleted from the chart) 12:04 12:04 Reassessment: see triage note kr3 kr3 14:00 13:58 Reassessment: called to let me know the pain and nausea is coming back and would kr3 like some more medication kr3 18:41 18:40 NGT: inserted 12 Fr. via right nare. verified return of gastric contents, kr3 kr3 22:30 21:28 NGT: to intermittent suction. Returned gastric contents. Returned bile. ke1 ke1
[2022-11-16 21:53] VITALS: TEMP 98.6
[2022-11-16 22:05] VITALS: BP 126/80; O2SAT 95
== END 2022-11-16 21:29 ==
LOC: ER 09:36
DX: K56.609 Unspecified intestinal obstruction, unspecified as to partial versus complete obstruction (principal); Z20.822 Contact with and (suspected) exposure to COVID-19
CPT/HCPCS: 85025; 36415; 83690; 80053; 74177; 74018; 96375; 96374; 99285; 87811; Q9967; J2765; J2270; J7030 ×2; J2405 ×2

== ENCOUNTER 2024-09-13 07:25 | Emergency (ER) | payer OTHER ==
--- OUTSIDE RECORDS SUMMARY | 2024-09-13 07:28 | XMS REPORT | Continuity of Care Document ---
Author Name Unknown Address [address] [facility] [address] [place] [address] [facility] Address [address] [place] [address] Care Team Providers Care Technician Helper Instrument Name Role Phone Jorge A Gonzales Attending Clinician Unavailable Jorge A Gonzales Admitting Clinician Unavailable Payers Payer Name Policy Type Policy Number Effective Date Expirati on Date Source Allergies, Adverse Reactions, Alerts Allergy Name Allergy Type Status Severity Reaction(s) Onset Date Inactive Date Treating Clinician Comments Source No Known Allergie s DA Active U 11-17 00:00: 00 [facility] No Known Allergie s DA Active U 11-16 00:00: 00 [facility] [place] Procedures Procedure Date / Time Performed Performing Clinicia n Source [id number] 2022-11-20 00:00:00 [facility] [id number] 2022-11-20 00:00:00 [facility] [id number] 2022-11-20 00:00:00 [facility] Encounters Start Date/Time End Date/Time Encounter Type Admission Type Attending Clinicians Care Facility Care Department Encounter ID Source 2022-11-16 22:51:00 2022-11-20 15:24:00 Inpatient EM Jorge A Gonzales [facility]01 [id number] [facility] 2021-10-31 00:00:00 2021-10-31 00:00:00 Outpatient [facility] [id number] [facility] 2021-10-16 00:00:00 2021-10-16 00:00:00 Outpatient [facility] [id number] [facility] Results Test Description Test Time Test Comments Results Result Co mments Source BASIC METABOLIC [id number] 04:54:00* Test Item Value Reference Range Interpretation Comme nts SODIUM (test code = NA) 141 mmol/L 136-145 N POTASSIUM (test code = K) 3.5 mmol/L 3.5-5.1 N CHLORIDE (test code = CL) 110 CARBON DIOXIDE (test code = CO2) 24 mmol/L 20-31 N GLUCOSE (test code = GLU) 113 ng/dL 74-106 H BLOOD UREA NITROGEN (test code = BUN) < 5 mg/dL 9-23 L GLOMERULAR FILTRATION RATE (test code = GFR) >=60 max estimate mL/min >60 The Glomerular Filtration Rate is a calculated parameterbased on serum Creatinine, patient age and sex. GFR valuesless than 60 mL/min/1.73 square meters are indicative ofChronic Kidney Disease. Values less than 15 mL/min/1.73square meters indicate Kidney failure. The calculation forGFR is based on the CKD-EPI (2020) calculation. This formulais race indifferent and is the recommended formula for GFRby the National Kidney Foundation for Adults.The GFR will not calculate if the sex is unknown or if thepatient's age is <18 years. CREATININE (test code = CREAT) 0.90 mg/dL 0.70-1.30 N CALCIUM (test code = CA) 7.9 mg/dL 8.7-10.4 L CBC W/AUTO [id number] 04:34:00* Test Item Value Reference Range Interpretation Comme nts WHITE BLOOD CELL (test code = WBC) 6.7 x10 3/uL 4.8-10.8 N RED BLOOD CELL (test code = RBC) 4.64 x10 6/uL 4.70-6.10 L HEMOGLOBIN (test code = HGB) 13.0 g/dL 14.0-18.0 L HEMATOCRIT (test code = HCT) 40.0 % 42.0-52.0 L MEAN CELL VOLUME (test code = MCV) 86.2 fL 80.0-94.0 N MEAN CELL HGB (test code = MCH) 28.0 pg 27-31 N MEAN CELL HGB CONCENTRATION (test code = MCHC) 32.5 G/DL 33-36.5 L RED CELL DISTRIBUTION WIDTH (test code = RDW) 13.4 % 12.9-16.9 N PLATELET COUNT (test code = PLT) 153 x10 3/uL 150-440 N MEAN PLATELET VOLUME (test c ode = MPV) 12.6 fL 8.9-12.4 H NEUTROPHIL % (test code = NT%) 49.7 % 42.2-75.2 N LYMPHOCYTE % (test code = LY%) 29.8 % 20.5-51.1 N MONOCYTE % (test code = MO%) 9.2 % 1.7-9.3 N EOSINOPHIL % (test code = EO%) 8.9 % 0.0-7.0 H BASOPHIL % (test code = BA%) 0.9 % 0-2.5 N NEUTROPHIL # (test code = NT#) 3.31 x10 3/uL 1.80-7.70 N LYMPHOCYTE # (test code = LY#) 1.98 x10 3/uL 1.00-4.80 N MONOCYTE # (test code = MO#) 0.61 x10 3/uL 0.00-0.80 N EOSINOPHIL # (test code = EO#) 0.59 x10 3/uL 0.00-0.45 H BASOPHIL # (test code = BA#) 0.06 x10 3/uL 0.0-0.20 N BASIC METABOLIC [id number] 07:36:00* Test Item Value Reference Range Interpretation Comme nts SODIUM (test code = NA) 140 mmol/L 136-145 N POTASSIUM (test code = K) 3.4 mmol/L 3.5-5.1 L CHLORIDE (test code = CL) 108 CARBON DIOXIDE (test code = CO2) 24 mmol/L 20-31 N GLUCOSE (test code = GLU) 113 ng/dL 74-106 H BLOOD UREA NITROGEN (test code = BUN) < 5 mg/dL 9-23 L GLOMERULAR FILTRATION RATE (test code = GFR) >=60 max estimate mL/min >60 The Glomerular Filtration Rate is a calculated parameterbased on serum Creatinine, patient age and sex. GFR valuesless than 60 mL/min/1.73 square meters are indicative ofChronic Kidney Disease. Values less than 15 mL/min/1.73square meters indicate Kidney failure. The calculation forGFR is based on the CKD-EPI (2021) calculation. This formulais race indifferent and is the recommended formula for GFRby the National Kidney Foundation for Adults.The GFR will not calculate if the sex is unknown or if thepatient's age is <18 years. CREATININE (test code = CREAT) 0.90 mg/dL 0.70-1.30 N CALCIUM (test code = CA) 8.4 mg/dL 8.7-10.4 L CBC W/AUTO [id number] 07:18:00* Test Item Value Reference Range Interpretation Comme nts WHITE BLOOD CELL (test code = WBC) 7.2 x10 3/uL 4.8-10.8 N RED BLOOD CELL (test code = RBC) 4.62 x10 6/uL 4.70-6.10 L HEMOGLOBIN (test code = HGB) 13.1 g/dL 14.0-18.0 L HEMATOCRIT (test code = HCT) 40.4 % 42.0-52.0 L MEAN CELL VOLUME (test code = MCV) 87.4 fL 80.0-94.0 N MEAN CELL HGB (test code = MCH) 28.4 pg 27-31 N MEAN CELL HGB CONCENTRATION (test code = MCHC) 32.4 G/DL 33-36.5 L RED CELL DISTRIBUTION WIDTH (test code = RDW) 13.4 % 12.9-16.9 N PLATELET COUNT (test code = PLT) 147 x10 3/uL 150-440 L MEAN PLATELET VOLUME (test c ode = MPV) 13.0 fL 8.9-12.4 H NEUTROPHIL % (test code = NT%) 55.2 % 42.2-75.2 N LYMPHOCYTE % (test code = LY%) 25.3 % 20.5-51.1 N MONOCYTE % (test code = MO%) 9.5 % 1.7-9.3 H EOSINOPHIL % (test code = EO%) 8.8 % 0.0-7.0 H BASOPHIL % (test code = BA%) 0.6 % 0-2.5 N NEUTROPHIL # (test code = NT#) 4.00 x10 3/uL 1.80-7.70 N LYMPHOCYTE # (test code = LY#) 1.83 x10 3/uL 1.00-4.80 N MONOCYTE # (test code = MO#) 0.69 x10 3/uL 0.00-0.80 N EOSINOPHIL # (test code = EO#) 0.64 x10 3/uL 0.00-0.45 H BASOPHIL # (test code = BA#) 0.04 x10 3/uL 0.0-0.20 N BASIC METABOLIC [id number] 11:46:00* Test Item Value Reference Range Interpretation Comme nts SODIUM (test code = NA) 143 mmol/L 136-145 N Please note: New Reference Range Nov 2020 POTASSIUM (test code = K) 4.2 mmol/L 3.5-5.1 N CHLORIDE (test code = CL) 110 mmol/L 98-107 H Please note: New Reference Range Nov 2020 CARBON DIOXIDE (test code = CO2) 27 mmol/L 20-31 N Please note: N ew Reference Range Nov 2020 GLUCOSE (test code = GLU) 102 mg/dL 74-106 N Please note: New Reference Range Nov 2020 BLOOD UREA NITROGEN (test code = BUN) 18 mg/dL 9-23 N Please note: New Reference Range Nov 2020 GLOMERULAR FILTRATION RATE (test code = GFR) >=60 max estimate mL/min >60 The Glomerular Filtration Rate is a calculated parameterbased on serum Creatinine, patient age and sex. GFR valuesless than 60 mL/min/1.73 square meters are indicative ofChronic Kidney Disease. Values less than 15 mL/min/1.73square meters indicate Kidney failure. The calculation forGFR is based on the CKD-EPI (2020) calculation. This formulais race indifferent and is the recommended formula for GFRby the National Kidney Foundation for Adults.The GFR will not calculate if the sex is unknown or if thepatient's age is <18 years. CREATININE (test code = CREAT) 1.00 mg/dL 0.70-1.30 N Please note: New Reference Range Nov 2020 CALCIUM (test code = CA) 8.2 mg/dL 8.7-10.4 L Please note: New Reference Range Nov 2020 LIVER FUNCTION [id number] 11:46:00* Test Item Value Reference Range Interpretation Comme nts TOTAL PROTEIN (test code = PROT) 5.9 g/dL 5.7-8.2 N Please note: New Reference Range Nov 2020 ALBUMIN (test code = ALB) 4.0 g/dL 3.2-4.8 N Please note: New Reference Range Nov 2020 BILIRUBIN TOTAL (test code = BILT) 1.9 mg/dL 0.3-1.2 H Please note: New Reference Range Nov 2020 BILIRUBIN DIRECT (test code = BILD) 0.5 mg/dL <0.3 H Please note: New Reference Range Nov 2020 SGOT/AST (test code = AST) 32 U/L <34 N Please note: New Reference Range Nov 2020 SGPT/ALT (test code = ALT) 51 U/L 10-49 H Please note: New Reference Range Nov 2020 ALKALINE PHOSPHATASE (test code = ALKP) 42 U/L 46-116 L Please note: New Reference Range Nov 2020 THYROID STIMULATING [id number] 11:46:00* Test Item Value Reference Range Interpretation Comme nts THYROID STIMULATING HORMONE (test code = TSH) 2.17 mIU/mL 0.55-4.78 N Please note: New Reference Range Nov 2020 [id number] 11:46:00* Test Item Value Reference Range Interpretation Comme nts PREALBUMIN (test code = PREALB) 17.4 mg/dL 10-40 N Please note: New Reference Range Nov 2020 [id number] 11:46:00* Test Item Value Reference Range Interpretation Comme nts MAGNESIUM (test code = MAG) 2.0 mg/dL 1.6-2.6 N Please note: New Reference Range Nov 2020 CBC W/AUTO [id number] 11:21:00* Test Item Value Reference Range Interpretation Comme nts WHITE BLOOD CELL (test code = WBC) 6.9 x10 3/uL 4.8-10.8 N RED BLOOD CELL (test code = RBC) 4.93 x10 6/uL 4.70-6.10 N HEMOGLOBIN (test code = HGB) 13.8 g/dL 14.0-18.0 L HEMATOCRIT (test code = HCT) 44.0 % 42.0-52.0 N MEAN CELL VOLUME (test code = MCV) 89.2 fL 80.0-94.0 N MEAN CELL HGB (test code = MCH) 28.0 pg 27-31 N MEAN CELL HGB CONCENTRATION (test code = MCHC) 31.4 G/DL 33-36.5 L RED CELL DISTRIBUTION WIDTH (test code = RDW) 14.0 % 12.9-16.9 N PLATELET COUNT (test code = PLT) 160 x10 3/uL 150-440 N MEAN PLATELET VOLUME (test c ode = MPV) 12.2 fL 8.9-12.4 N NEUTROPHIL % (test code = NT%) 54.5 % 42.2-75.2 N LYMPHOCYTE % (test code = LY%) 19.8 % 20.5-51.1 L MONOCYTE % (test code = MO%) 15.0 % 1.7-9.3 H EOSINOPHIL % (test code = EO%) 10.2 % 0.0-7.0 H BASOPHIL % (test code = BA%) 0.4 % 0-2.5 N NEUTROPHIL # (test code = NT#) 3.73 x10 3/uL 1.80-7.70 N LYMPHOCYTE # (test code = LY#) 1.36 x10 3/uL 1.00-4.80 N MONOCYTE # (test code = MO#) 1.03 x10 3/uL 0.00-0.80 H EOSINOPHIL # (test code = EO#) 0.70 x10 3/uL 0.00-0.45 H BASOPHIL # (test code = BA#) 0.03 x10 3/uL 0.0-0.20 N - XR ABDOMEN [id number] 23:45:00 [facility] : 1955 Sex: MPatient Name: LUCY ARIAS Unit No: [id number] EXAMS: CPT CODE: [id number] XR ABDOMEN 1V 10327 Exam: KUB. Location: H 12 History: NGT placement Findings: A nasogastric tube hasbeen placed, the tip is in the stomach. Impression: Satisfactory nasogastric tube placement. at 2345 Reported and signed by:LOVLEY GONZALES M.D. CC: Syd Hope MD; Jorge A Gonzales MD Technologist: Yordy Mcclellan Time: DAP (Gy m2): Air Kerma (mGy): Trscr Dt/Tm: 11/16/2022 (2469) by:Monica Printed Date/Time: 11/16/2022 (6270) Name: LUCY ARIAS [facility] Phys: Syd Shore MD [id number] : 1955 Age: 67 Sex: [place] [address] Loc: PDAVID 1 Exam Date: 11/16/2022 Status: ADM IN PH: FAX: PAGE 1 Signed Report
[2024-09-13] MEDS ORDERED: ONDANSETRON 4 MG/2 ML VIAL ONE ×2 (07:44→12:07)
[2024-09-13] MEDS ORDERED: MORPHINE 4 MG/ML SYR ONE ×2 (07:45→12:08)
[2024-09-13] MEDS ORDERED: NA CHLORIDE 0.9% 1,000 ML ONE ×2 (07:45→09:44)
[2024-09-13 08:05] LABS: Absolute Basophils 0.1 K/uL (0-0.5); Absolute Lymphocytes (CBC) 0.8 K/uL (0.7-4.9); Absolute Monocytes 1.6 K/uL (0.1-1.3); Basophils % 0.7 % (0-1.3); Eosinophils % 0.3 % (0-4.4); Hematocrit 49.8 % (39.6-49.0); Hemoglobin 16.4 g/dL (13.6-17.9); Lymphocytes % 6.3 % (15.3-44.8); MCH 28.8 pg (27.0-35.0); MCHC 32.8 g/dL (32.0-36.0); MCV 87.8 fL (80-100); MPV 10.2 fL (7.6-11.3); Monocytes % 12.8 % (3.3-12.3); Neutrophils % 79.9 % (41.7-73.7); Nucleated Red Blood Cells % 0.1 % (0-0); Platelets 170 thou/uL (152-406); RBC Red Blood Cell Count 5.68 M/uL (4.33-5.43); Red Cell Distribution Width 14.3 % (12.1-15.2)
[2024-09-13 08:26] LABS: Albumin 3.8 g/dL (3.4-5.0); Albumin/Globulin Ratio 0.9 (1.1-1.8); Anion Gap 12.5 mEq/L (5.0-15.0); Bilirubin Total 2.7 mg/dL (0.2-1.0); Globulin 4.2 g/dL (2.3-3.5); Potassium 3.5 mEq/L (3.5-5.1); Troponin High Sensitivity 5.2 pg/mL (<58.9)
--- NOTE | 2024-09-13 08:59 | RAD REPORT ---
EXAMINATION: CT ABDOMEN AND PELVIS WITH CONTRAST CLINICAL INDICATION: Male, 69 years old.ABD PAIN TECHNIQUE: CT abdomen and pelvis was performed, after the administration of IV contrast, as per depar tment protocol. Axial, sagittal and coronal reconstructions were obtained. One or more of the following dose reduction techniques were used: Automated exposure control, adjustment of the mA and/o r kV according to patient size, and/or iterative reconstruction. Unless otherwise specified, incidental findings do not require dedicated imaging follow-up. [id number]. COMPARISON: 11/16/2022 FINDINGS: LOWER CHEST: Small hiatal hernia. LIVER: Several low-density liver lesions are unchanged and likely benign. GALLBLADDER/BILE DUCT: No biliary ductal dilatation.? PANCREAS: No significant abnormality. SPLEEN: Normal size. No focal lesion. ADRENALS: Normal; no mass. KIDNEYS AND URETERS: Normal size and contour. No hydronephrosis. GASTROINTESTINAL TRACT: Diffusely dilated small bowel measuring up to 3.5 cm with air-fluid levels. T he patient has had a prior colectomy. Visualized small bowel at the ileoanal anastomosis. Cannot exclude an anastomotic stricture. PERITONEUM: Trace free fluid. LYMPH NODES: No lymphadenopathy. ABDOMINAL AORTA AND OTHER VESSELS: Normal caliber aorta and IVC. URINARY BLADDER: Normal contour. REPRODUCTIVE ORGANS: No pathologic process MUSCULOSKELETAL: No acute or suspicious osseous abnormality. ADDITIONAL FINDINGS: None. IMPRESSION: Colectomy with ileoanal anastomosis. Dilated small bowel with fecalized contents at the anastomosis w hich could indicate an anastomotic stricture.
--- NOTE | 2024-09-13 09:26 | ER ---
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 Coronavirus screen: At this hb time, the client does not indicate any symptoms associated with coronavirus-19. Ebola Screen: No symptoms or risks identified at this time. Initial Sepsis Screen: Does the patient meet any 2 criteria? No. Patient's initial sepsis screen is negative. Does the patient have a suspected source of infection? No. Patient's initial sepsis screen is negative. Risk Assessment: Do you want to hurt yourself or someone else? Patient reports no desire to harm self or others. Onset of symptoms was September 11, 2024. 07:39 Method Of Arrival: Ambulatory hb 07:39 Acuity: VIVIAN 3 hb Triage Assessment: 07:40 General: Appears in no apparent distress. uncomfortable, Behavior is calm, cooperative. hb Pain: Pain currently is 10 out of 10 on a pain scale. Neuro: Level of Consciousness is awake, alert, obeys commands, Oriented to person, place, time, situation. Cardiovascular: Patient's skin is warm and dry. Respiratory: Respiratory effort is even, unlabored, Respiratory pattern is regular, symmetrical. GI: Reports lower abdominal pain, upper abdominal pain, nausea, vomiting. Historical: - Allergies: 07:40 No Known Allergies; hb - PMHx: 07:40 Colitis; ruptured colon; hb - PSHx: 07:40 Colostomy and reversal; hb - Immunization history:: Adult Immunizations up to date. - Infectious Disease History:: Denies. - Social history:: Smoking status: Patient denies any tobacco usage or history of. Screenin:59 [facility] ED Fall Risk Assessment (Adult) History of falling in the last 3 months, kc6 including since admission No falls in past 3 months (0 pts) Confusion or Disorientation No (0 pts) Intoxicated or Sedated No (0 pts) Impaired Gait No (0 pts) Mobility Assist Device Used No (0 pt) Altered Elimination No (0 pt) Score/Fall Risk Level 0 - 2 = Low Risk Oriented to surroundings, Maintained a safe environment. Abuse screen: Denies threats or abuse. Denies injuries from another. Nutritional screening: No deficits noted. Tuberculosis screening: No symptoms or risk factors identified. Assessment: 08:00 General: Appears in no apparent distress. uncomfortable, Behavior is calm, cooperative, ph appropriate for age. Pain: Complains of pain in abdomen. Neuro: Level of Consciousness is awake, alert, obeys commands, Oriented to person, place, time, situation. Cardiovascular: Capillary refill < 3 seconds in bilateral fingers Patient's skin is warm and dry. Respiratory: Airway is patent Respiratory effort is even, unlabored, Respiratory pattern is regular, symmetrical. GI: Reports lower abdominal pain, upper abdominal pain, nausea, vomiting. Derm: Skin is pink, warm \T\ dry. 11:47 Reassessment: Report called to ARCENIO Ocampo at [facility], awaiting EMS for transport. ph Vital Signs: 07:39 BP 155 / 96; Pulse 84; Resp 16; Temp 98.1(O); Pulse Ox 97% on R/A; Weight 86.18 kg; hb Height 5 ft. 9 in. ; Pain 10/10; 08:44 BP 150 / 80; Pulse 75; Resp 18; Pulse Ox 97% on R/A; ph 11:48 BP 158 / 77; Pulse 77; Resp 18; Temp 98; Pulse Ox 95% on R/A; ph 07:39 Body Mass Index 28.06 (86.18 kg, 175.26 cm) hb 07:39 Pain Scale: Adult hb ED Course: 07:28 Patient arrived in ED. ra3 07:33 Rosa Stewart MD is Attending Physician. sp3 07:40 Triage completed. hb 07:41 Agnes Corbin, RN is Primary Nurse. ph 07:50 Arm band placed on. hb 07:58 Patient has correct armband on for positive identification. Bed in low position. Call devyn light in reach. Side rails up X 1. Adult w/ patient. Pulse ox on. NIBP on. Door closed. Noise minimized. Lights dimmed. Warm blanket given. Pillow given. 07:58 Initial lab(s) drawn, by me, sent to lab. EKG done, by oracle technical architect. reviewed by Rosa Stewart MD. Inserted saline lock: 20 gauge in right forearm, using aseptic technique. Blood collected. Flushed with 10 mL NS. Patient maintains SpO2 saturation greater than 95% on room air. 08:43 Notified ED physician of a critical lab result(s). Lactate 3.8. ph 08:44 Provided Education on: Use of call light and estimated time for test results. ph 08:52 CT Abd/Pelvis - IV Contrast Only In Process Unspecified. EDMS 09:50 initiated a transfer with [facility]. eb 09:57 per R[facility] will have to be decline the patient in transfer due to being at eb capacity. 10:[address] Shaw the colorectal surgeon title i paraprofessional for Dr. Allen with Dr. biju Stewart. 10:[address] Allen patients colorectal surgeon title i paraprofessional for patient transfer eb consultation. 10:15 initiated a transfer with Felisha from the [facility] transfer center at the request of Dr. Allen.eb 10:40 connected the hospitalist title i paraprofessional for [facility] with Dr. Stewart for patient eb transfer consultation. 11:04 administrative approval given by Felisha Mi Rn T.C. / patient has been accepted to [facility] room 901/ Dr. Jules [facility] has accepted the patient in transfer/ report to be called to [phone]. 12:24 No provider procedures requiring assistance completed. Patient transferred, IV remains ph in place. Administered Medications: 07:58 Drug: Ondansetron IVP 4 mg IVP once; over 2 minutes Route: IVP; Site: right forearm; kc6 08:30 Follow up: Response: No adverse reaction ph 07:58 Drug: morphine IVP or IV 4 mg IVP once over 4 mins Route: IVP; Infused Over: 4 mins; kc6 Site: right forearm; 08:30 Follow up: Response: No adverse reaction; Pain is decreased; RASS: Drowsy (-1) ph 07:58 Drug: NS 0.9% IV 1000 ml IV at 1 bolus Per protocol; to be given as a bolus over 60 kc6 minutes Route: IV; Rate: 1 bolus; Site: right forearm; 09:00 Follow up: Response: No adverse reaction; IV Status: Completed infusion; IV Intake: ph 1000ml 09:55 Drug: NS 0.9% IV 1000 ml IV at 1 bolus Per protocol; to be given as a bolus over 60 ph minutes Route: IV; Rate: 1 bolus; Site: right antecubital; 11:00 Follow up: Response: No adverse reaction; IV Status: Completed infusion; IV Intake: ph 1000ml 12:24 Drug: morphine IVP or IV 4 mg IVP once over 4 mins Route: IVP; Infused Over: 4 mins; ph Site: right antecubital; 12:25 Follow up: Response: No adverse reaction; Medication Administered at Departure ph 12:24 Drug: Ondansetron IVP 4 mg IVP once; over 2 minutes Route: IVP; Site: right antecubital;ph 12:25 Follow up: Response: No adverse reaction; Medication Administered at Departure Medication: 08:44 VIS not applicable for this client. ph Intake: 09:00 IV: 1000ml; Total: 1000ml. ph 11:00 IV: 1000ml; Total: 2000ml. Outcome: :26 ER care complete, transfer ordered by MD. maier 12:24 Transferred by ground EMS Transfer form completed. X-rays sent w/ patient. Note: to [facility] 12:24 Condition: stable 12:24 Instructed on the need for transfer, 12:25 Patient left the ED. Signatures: Dispatcher [employer] Agnes Domingo RN RN Sun Hairston RN RN hb Botello, Elizabeth eb Patel, Setul, MD MD sp3 Ariane Gutierrez RN RN kc6 Maria Esther Decker ra3
--- NOTE | 2024-09-13 09:26 | EDPHYS ---
Physician Documentation [facility] Name: Chacho Flower Age: 69 yrs Sex: Male : 1955 Arrival Date: 09/13/2024 Time: 07:25 Bed 7 Private MD: ED Physician Rosa Stewart HPI: 09/13 07:58 This 69 yrs old Male presents to ER via Ambulatory with complaints of Abdominal Pain. 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 Patient denies any other symptoms, change in diet, fever, headache, chest pain, shortness of breath, vomiting, syncope, near syncope, rash, bleeding or any other signs or symptoms on ROS at this time. He does endorse mild nausea. Pain is diffuse and predominantly in the lower abdomen.. Historical: - Allergies: 07:40 No Known Allergies; hb - PMHx: 07:40 Colitis; ruptured colon; hb - PSHx: 07:40 Colostomy and reversal; hb - Immunization history:: Adult Immunizations up to date. - Infectious Disease History:: Denies. - Social history:: Smoking status: Patient denies any tobacco usage or history of. ROS: 07:59 Constitutional: Negative for fever, chills, and weight loss, Eyes: Negative for injury, sp3 pain, redness, and discharge, ENT: Negative for injury, pain, and discharge, Neck: Negative for injury, pain, and swelling, Cardiovascular: Negative for chest pain, palpitations, and edema, Respiratory: Negative for shortness of breath, cough, wheezing, and pleuritic chest pain, Back: Negative for injury and pain, MS/Extremity: Negative for injury and deformity, Skin: Negative for injury, rash, and discoloration, Neuro: Negative for headache, weakness, numbness, tingling, and seizure, Psych: Negative for depression, anxiety, suicide ideation, homicidal ideation, and hallucinations, Allergy/Immunology: Negative for hives, rash, and allergies, Endocrine: Negative for neck swelling, polydipsia, polyuria, polyphagia, and marked weight changes, Hematologic/Lymphatic: Negative for swollen nodes, abnormal bleeding, and unusual bruising, 07:59 All other systems are negative, Exam: 07:59 Constitutional: This is a well developed, well nourished patient who is awake, alert, sp3 and in no acute distress. Head/Face: Normocephalic, atraumatic. Eyes: Pupils equal round and reactive to light, extra-ocular motions intact. Lids and lashes normal. Conjunctiva and sclera are non-icteric and not injected. Cornea within normal limits. Periorbital areas with no swelling, redness, or edema. Neck: Trachea midline, no thyromegaly or masses palpated, and no cervical lymphadenopathy. Supple, full range of motion without nuchal rigidity, or vertebral point tenderness. No Meningismus. Chest/axilla: Normal chest wall appearance and motion. Nontender with no deformity. No lesions are appreciated. Cardiovascular: Regular rate and rhythm with a normal S1 and S2. No gallops, murmurs, or rubs. Normal PMI, no JVD. No pulse deficits. Respiratory: Lungs have equal breath sounds bilaterally, clear to auscultation and percussion. No rales, rhonchi or wheezes noted. No increased work of breathing, no retractions or nasal flaring. Back: No spinal tenderness. No costovertebral tenderness. Full range of motion. Skin: Warm, dry with normal turgor. Normal color with no rashes, no lesions, and no evidence of cellulitis. MS/ Extremity: Pulses equal, no cyanosis. Neurovascular intact. Full, normal range of motion. Neuro: Awake and alert, GCS 15, oriented to person, place, time, and situation. Cranial nerves II-XII grossly intact. Motor strength 5/5 in all extremities. Sensory grossly intact. Cerebellar exam normal. Normal gait. Psych: Awake, alert, with orientation to person, place and time. Behavior, mood, and affect are within normal limits. 07:59 Abdomen/GI: Distended abdomen with diffuse pain to palpation. No peritoneal signs however patient is quite tender., 08:01 ECG was reviewed by the Attending Physician. EKG demonstrates normal sinus rhythm at 77 sp3 bpm with normal intervals, normal QRS, normal axis, nonspecific diffuse ST's ST changes without evidence of acute ischemia. Vital Signs: 07:39 BP 155 / 96; Pulse 84; Resp 16; Temp 98.1(O); Pulse Ox 97% on R/A; Weight 86.18 kg; hb Height 5 ft. 9 in. ; Pain 10/10; 08:44 BP 150 / 80; Pulse 75; Resp 18; Pulse Ox 97% on R/A; ph 11:48 BP 158 / 77; Pulse 77; Resp 18; Temp 98; Pulse Ox 95% on R/A; ph 07:39 Body Mass Index 28.06 (86.18 kg, 175.26 cm) hb 07:39 Pain Scale: Adult hb MDM: 07:33 Medical Screening Exam initiated sp3 08:00 Data reviewed: vital signs, nurses notes, lab test result(s), EKG, radiologic studies. sp3 ED course: 69-year-old male with extensive abdominal pathology now presents with recurrent abdominal distention and abdominal pain. Differential diagnosis includes small bowel obstruction, ileus, enteritis, among others. I am not highly spacious for , vascular or other pathology. Workup will include CT scan of the abdomen pelvis, general labs, UA, EKG and supportive care. Morphine, ondansetron and IV fluids ordered. Patient is NPO. Disposition pending workup and patient course.. 09:24 ED course: Discussed with Dr. Munoz who states patient will likely need balloon sp3 dilatation which is not available here. Will transfer patient to [facility] where patient's surgeon is for further intervention. Patient has had such dilation in the past.. 10:07 ED course: [facility] on diversion. Spoke to Dr. Allen who suggested [facility] where sp3 he has privileges as well.. 12 07:39 Order name: CBC with Diff sp3 09/13 07:39 Order name: CMP; Complete Time: 09:03 sp3 09/13 07:39 Order name: Lipase; Complete Time: 09:03 sp3 09/13 07:39 Order name: Urinalysis w/ reflexes sp3 09/13 07:39 Order name: Troponin High Sensitivity; Complete Time: 09:03 sp3 09/13 07:39 Order name: Lactate w/ 2H reflex if indic.; Complete Time: 09:03 sp3 09/13 08:45 Order name: Ghost Lactate-NO COLLECT Timer EDMS 09/13 11:50 Order name: Lactate Sepsis 2 HR Follow-up EDMS 09/13 07:39 Order name: CT Abd/Pelvis - IV Contrast Only; Complete Time: 09:03 sp3 09/13 07:39 Order name: IV Saline Lock; Complete Time: 07:58 sp3 09/13 07:39 Order name: Labs collected and sent; Complete Time: 07:58 sp3 09/13 07:39 Order name: EKG - Nurse/Tech; Complete Time: 07:58 sp3 Administered Medications: 07:58 Drug: Ondansetron IVP 4 mg IVP once; over 2 minutes Route: IVP; Site: right forearm; kc6 08:30 Follow up: Response: No adverse reaction ph 07:58 Drug: morphine IVP or IV 4 mg IVP once over 4 mins Route: IVP; Infused Over: 4 mins; kc6 Site: right forearm; 08:30 Follow up: Response: No adverse reaction; Pain is decreased; RASS: Drowsy (-1) ph 07:58 Drug: NS 0.9% IV 1000 ml IV at 1 bolus Per protocol; to be given as a bolus over 60 kc6 minutes Route: IV; Rate: 1 bolus; Site: right forearm; 09:00 Follow up: Response: No adverse reaction; IV Status: Completed infusion; IV Intake: ph 1000ml 09:55 Drug: NS 0.9% IV 1000 ml IV at 1 bolus Per protocol; to be given as a bolus over 60 ph minutes Route: IV; Rate: 1 bolus; Site: right antecubital; 11:00 Follow up: Response: No adverse reaction; IV Status: Completed infusion; IV Intake: ph 1000ml 12:24 Drug: morphine IVP or IV 4 mg IVP once over 4 mins Route: IVP; Infused Over: 4 mins; ph Site: right antecubital; 12:25 Follow up: Response: No adverse reaction; Medication Administered at Departure ph 12:24 Drug: Ondansetron IVP 4 mg IVP once; over 2 minutes Route: IVP; Site: right antecubital;ph 12:25 Follow up: Response: No adverse reaction; Medication Administered at Departure ph Disposition Summary: 09/13/24 09:26 Transfer Ordered Notes: Transfer Location: [facility] sp3 Reason: Higher level of care sp3 Condition: Stable sp3 Problem: an acute exacerbation sp3 Symptoms: have worsened sp3 Accepting Physician: Dr. 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 EDNC EDMS 12:25 09:26 Dr. Sam Allen or other colorectal team sp3 ph
[2024-09-13 13:01] LABS: Sqamous Epithelial None Seen /HPF (None Seen); Urine Bacteria None Seen /HPF (<20); Urine Bilirubin NEGATIVE (Negative); Urine Blood Negative (Negative); Urine Clarity Clear (Clear); Urine Color Light-Yellow (Yellow); Urine Culture Reflex Order NOT NEEDED; Urine Glucose NEGATIVE (Negative); Urine Ketones NEGATIVE (Negative); Urine Microscopic Reflex YN ORDER UMIC; Urine Mucus 1+ /HPF (None Seen); Urine Nitrite NEGATIVE (Negative); Urine Protein TRACE (Negative); Urine RBC <5 /HPF (None Seen); Urine Urobilinogen Normal (Normal); Urine WBC None Seen /HPF (<5)
[2024-09-13 13:02] LABS: Specific Gravity > 1.030 (1.005-1.030)
[2024-09-13 14:13] VITALS: BP 158/77; TEMP 98; O2SAT 95
== END 2024-09-13 12:25 | disposition short-term general hospital (02) ==
LOC: ER 07:25
DX: K91.30 Postprocedural intestinal obstruction, unspecified as to partial versus complete (principal)
CPT/HCPCS: 85025; 81001; 36415; 83605 ×2; 84484; 83690; 80053; 74177; 99285; Q9967; J2405 ×2; J7030 ×2